=== PATIENT | female | born 1940 | race Caucasian/White ===

== ENCOUNTER → 2016-05-10 | Outpatient (CLI) | payer MEDICARE, BC, OTHER ==
[~2016-05-10] MED LIST: /WARF25TA OR; ACET65TA OR; ACTO150T PO; ALDA25TA2 PO; AUGM875T27 PO; B 12 PO; CALC1TAB21 PO; CALCIUM PO; CEPH500C PO; CORTISONE; ECOT81TA5 PO; FLAG500T PO; FLON0.054; FLUC150T PO; FURO1TAB15 PO; FURO20TA PO; LOSA25TA8 PO; LUMIGAN OU; MIRALAX PO; MULTIVIT OR; PERC5TAB8 OR; PRAV80TA PO; PRAVASTATIN PO; PRIL40CA PO; SPIR100T OR; SYNT112T OR; SYNT112T2 PO; VIT D PO; VITAMIN D PO; VITAMIN E PO; XALA0.002 OU; ZINCLOZ9 PO
[2016-05-10 18:16] LABS: FREE T4 1.19 NG/DL (0.76-1.46)
== END ==
LOC: M WUC 14:14
PROVIDERS: ATTEND Physician Assistant Medical
DX: E55.9 Vitamin D deficiency, unspecified (principal); E89.0 Postprocedural hypothyroidism

== ENCOUNTER → 2016-06-28 | Outpatient (REF) | payer MEDICARE, BC, OTHER | LOC: M SFHCPLAZ 11:53 | PROVIDERS: ATTEND Nurse Practitioner Family | DX: R30.0 Dysuria (principal) | CPT/HCPCS: 81002; 87088; 87186; G0463 ==

== ENCOUNTER → 2016-08-04 | Outpatient (REF) | payer MEDICARE, OTHER | LOC: M LABDRAW1 17:10 | PROVIDERS: ATTEND Internal Medicine Endocrinology, Diabetes & Metabolism | DX: M85.89 Other specified disorders of bone density and structure, multiple sites (principal); E55.9 Vitamin D deficiency, unspecified ==

== ENCOUNTER → 2016-09-01 | Outpatient (REF) | payer MEDICARE, OTHER ==
[2016-09-01 13:02] LABS: MEAN CORPUSCULAR HEMOGLOBIN 29.7 pg (27.0-33.0); MEAN CORPUSCULAR HGB CONC 32.4 g/dl (32.0-36.5); MEAN CORPUSCULAR VOLUME 91.8 fl (80.0-96.0); RED CELL DISTRIBUTION WIDTH 13.2 % (11.5-14.5)
[2016-09-01 13:03] LABS: ALBUMIN 3.6 GM/DL (3.2-5.2); ALKALINE PHOSPHATASE 70 U/L (45-117); ALT/SGPT 28 U/L (12-78); ANION GAP 9 MEQ/L (8-16); AST/SGOT 20 U/L (15-37); BILIRUBIN,TOTAL 0.2 MG/DL (0.2-1.0); BLOOD UREA NITROGEN 10 MG/DL (7-18); CALCIUM LEVEL 8.6 MG/DL (8.8-10.2); CARBON DIOXIDE LEVEL 25 MEQ/L (21-32); CHLORIDE LEVEL 108 MEQ/L (98-107); CHOLESTEROL LEVEL 165 MG/DL (<200); CREATININE FOR GFR 0.78 MG/DL (0.55-1.02); FREE T4 1.23 NG/DL (0.76-1.46); GLOMERULAR FILTRATION RATE > 60.0 (>39); GLUCOSE, FASTING 137 MG/DL (83-110); POTASSIUM SERUM 4.4 MEQ/L (3.5-5.1); SODIUM LEVEL 142 MEQ/L (136-145); TOTAL PROTEIN 6.6 GM/DL (6.4-8.2); TRIGLYCERIDES LEVEL 114 MG/DL (<150)
== END ==
LOC: M SFHCPLAZ 08:16
PROVIDERS: ATTEND Family Medicine
DX: I25.9 Chronic ischemic heart disease, unspecified (principal); E78.2 Mixed hyperlipidemia; E03.9 Hypothyroidism, unspecified; E13.9 Other specified diabetes mellitus without complications

== ENCOUNTER → 2016-10-10 | Outpatient (CLI) | payer MEDICARE, BC, OTHER ==
[~2016-10-10] MED LIST changes: -AUGM875T27 PO; +AUGM875T28 PO; -FURO1TAB15 PO; +FURO80TA2 PO; -XALA0.002 OU; +XALA0.007 OU
--- NOTE | 2016-10-10 19:06 | REP ---
CHEST, PA AND LATERAL: 10/10/2016. Clinical history: Left-sided chest wall pain. Comparison: 03/07/2016, 11/22/2012. Findings: Lung chester are well inflated. There is basilar fibrotic change medial basal segments both lower lobes with the greatest amount of fibrosis and diffuse interstitial changes throughout the upper mid and lower lung zones. No pleural effusion, lateral pleural thickening, parenchymal lung mass or pneumothorax. Minor apical pleural scarring again seen. The aorta is mildly tortuous but without aneurysm. Airway is intact. The heart size is borderline. No vascular redistribution or pulmonary edema. Lateral view shows no acute finding. There are marginal osteophytes throughout the thoracic spine with slightly exaggerated thoracic kyphosis upper spine but no acute compression deformity is seen, glenohumeral joints intact. Impression: 1. Some interstitial fibrosis present heaviest in the medial bases but without new or superimposed acute infiltrate, pleural effusion, pulmonary edema, atelectasis or mass. 2. Borderline heart size. 3. Tortuous aorta normal for age. There are degenerative changes in the spine. Signed by Juan Jose Diallo MD 10/11/2016 08:12 P
== END ==
LOC: M WUC 16:27
PROVIDERS: ATTEND Family Medicine
DX: R07.89 Other chest pain (principal); J98.4 Other disorders of lung
CPT/HCPCS: 71020; G0463

== ENCOUNTER → 2016-10-24 | Outpatient (CLI) | payer MEDICARE, BC ==
--- NOTE | 2016-10-24 13:46 | REPMRS ---
Patient History The patient states she has not had a clinical breast exam in over a year. Patient is postmenopausal and has history of other cancer at age 70. Family history of breast cancer in sister at age 50 or over. 3 benign excisional biopsies of the right breast. Digital Woman Screen Mammo: October 24, 2016 - Exam #: [id number] Bilateral CC and MLO view(s) were taken. Technologist: Elizabeth Peterson, Technologist Prior study comparison: September 10, 2015, digital woman screen mammo performed at [facility]. September 08, 2014, digital woman screen mammo performed at [facility]. FINDINGS: There are scattered fibroglandular densities. There is a fairly symmetric fibroglandular pattern in both breasts. There has been no interval development of masses, areas of architectural distortion or clusters of microcalcifications typical of malignancy. ASSESSMENT: BI-RADS/ACR category 2 mammogram. Benign finding(s). Recommendation Routine screening mammogram of both breasts in 1 year (for women over age 40). This mammogram was interpreted with the aid of an FDA-approved computer-aided dectection system. Electronically Signed By: Cal Clark MD 10/24/16 [id number]
== END ==
LOC: M WHC 12:57
PROVIDERS: ATTEND Family Medicine
DX: Z12.31 Encounter for screening mammogram for malignant neoplasm of breast (principal); Z85.9 Personal history of malignant neoplasm, unspecified; Z80.3 Family history of malignant neoplasm of breast

== ENCOUNTER → 2017-02-19 | Outpatient (CLI) | payer MEDICARE, BC, OTHER | LOC: M ADAMS 13:34 | PROVIDERS: ATTEND Physician Assistant | DX: N39.0 Urinary tract infection, site not specified (principal) ==

== ENCOUNTER → 2017-03-16 | Outpatient (REF) | payer MEDICARE, OTHER | LOC: M SFHCPLAZ 16:30 | DX: I11.9 Hypertensive heart disease without heart failure (principal); E11.9 Type 2 diabetes mellitus without complications; E78.2 Mixed hyperlipidemia ==

== ENCOUNTER → 2017-03-16 | Outpatient (REF) | payer MEDICARE, OTHER | LOC: M LABDRAW1 12:28 | DX: E89.0 Postprocedural hypothyroidism (principal); E55.9 Vitamin D deficiency, unspecified | CPT/HCPCS: 84443 ==

== ENCOUNTER → 2017-07-25 | Outpatient (REF) | payer MEDICARE, OTHER | LOC: M SFHCLERA 10:01 | DX: C44.712 Basal cell carcinoma of skin of right lower limb, including hip (principal); L73.8 Other specified follicular disorders | CPT/HCPCS: 88305 ==

== ENCOUNTER → 2017-07-30 | Outpatient (REF) | payer MEDICARE, OTHER | LOC: M SFHCPLAZ 11:48 | DX: R30.0 Dysuria (principal) | CPT/HCPCS: 87088; 87186 ==

== ENCOUNTER → 2017-09-27 | Outpatient (CLI) | payer MEDICARE, BC, OTHER ==
[2017-09-27 18:22] LABS: TOTAL 25(OH) VITAMIN D 48.5 NG/ML (30.0-100.0)
== END ==
LOC: M SMT 14:42
DX: E55.9 Vitamin D deficiency, unspecified (principal); E89.0 Postprocedural hypothyroidism; Z79.899 Other long term (current) drug therapy
CPT/HCPCS: 84443

== ENCOUNTER → 2017-10-17 | Outpatient (CLI) | payer MEDICARE, OTHER ==
[2017-10-17 19:33] LABS: BASO # 0.1 10^3/uL (0.0-0.2); BASO % 0.5 % (0.0-1.0); EOS # 0.2 10^3/uL (0.0-0.50); EOS % 1.8 % (0.0-3.0); HEMATOCRIT 34.9 % (36.0-47.0); HEMOGLOBIN 10.4 g/dl (12.0-15.5); LYMPH # 3.7 10^3/uL (1.5-4.5); LYMPH % 30.1 % (24.0-44.0); MEAN CORPUSCULAR HEMOGLOBIN 25.7 pg (27.0-33.0); MEAN CORPUSCULAR HGB CONC 29.8 g/dl (32.0-36.5); MEAN CORPUSCULAR VOLUME 86.4 fl (80.0-96.0); MONO # 1.2 10^3/uL (0.0-0.8); MONO % 9.9 % (0.0-5.0); NEUTROPHILS % 56.7 % (36.0-66.0); PLATELET COUNT, AUTOMATED 417 10^3/uL (150-450); RED BLOOD COUNT 4.04 10^6/uL (4.00-5.40); RED CELL DISTRIBUTION WIDTH 14.1 % (11.5-14.5); WHITE BLOOD COUNT 12.3 10^3/uL (4.0-10.0)
== END ==
LOC: M ADAMS 14:26
DX: J20.9 Acute bronchitis, unspecified (principal); J84.10 Pulmonary fibrosis, unspecified; I51.7 Cardiomegaly
CPT/HCPCS: 85025

== ENCOUNTER → 2017-11-12 | Outpatient (REF) | payer MEDICARE, OTHER ==
[2017-11-12 18:59] LABS: HEMATOCRIT 36.7 % (36.0-47.0); HEMOGLOBIN 11.2 g/dl (12.0-15.5); MEAN CORPUSCULAR HEMOGLOBIN 26.7 pg (27.0-33.0); MEAN CORPUSCULAR HGB CONC 30.5 g/dl (32.0-36.5); MEAN CORPUSCULAR VOLUME 87.4 fl (80.0-96.0); PLATELET COUNT, AUTOMATED 405 10^3/uL (150-450); RED CELL DISTRIBUTION WIDTH 15.3 % (11.5-14.5); WHITE BLOOD COUNT 12.6 10^3/uL (4.0-10.0)
[2017-11-12 19:28] LABS: ESTIMATED AVERAGE GLUCOSE 180 MG/DL (60-110); HEMOGLOBIN A1c 7.9 %
[2017-11-12 19:39] LABS: ALBUMIN 3.8 GM/DL (3.2-5.2); ALBUMIN/GLOBULIN RATIO 1.09 (1.00-1.93); ALKALINE PHOSPHATASE 97 U/L (45-117); ALT/SGPT 30 U/L (12-78); ANION GAP 9 MEQ/L (8-16); AST/SGOT 19 U/L (7-37); BILIRUBIN,TOTAL 0.4 MG/DL (0.2-1.0); BLOOD UREA NITROGEN 12 MG/DL (7-18); CALCIUM LEVEL 9.4 MG/DL (8.8-10.2); CARBON DIOXIDE LEVEL 27 MEQ/L (21-32); CHLORIDE LEVEL 102 MEQ/L (98-107); CREATININE FOR GFR 0.93 MG/DL (0.55-1.30); FREE T4 1.17 NG/DL (0.76-1.46); GLOMERULAR FILTRATION RATE > 60.0 (>39); GLUCOSE, FASTING 104 MG/DL (70-100); POTASSIUM SERUM 4.6 MEQ/L (3.5-5.1); SODIUM LEVEL 138 MEQ/L (136-145); TOTAL PROTEIN 7.3 GM/DL (6.4-8.2)
[2017-11-13 17:05] LABS: BASO # 0.1 10^3/uL (0.0-0.2); BASO % 0.5 % (0.0-1.0); EOS # 0.2 10^3/uL (0.0-0.50); EOS % 1.3 % (0.0-3.0); IMMATURE GRANULOCYTE # 0.1 10^3/uL (0-0); IMMATURE GRANULOCYTE % 0.7 % (0-3.0); LYMPH # 3.5 10^3/uL (1.5-4.5); LYMPH % 27.3 % (24.0-44.0); MONO # 1.4 10^3/uL (0.0-0.8); MONO % 10.9 % (0.0-5.0); NEUTROPHILS # 7.7 10^3/uL (1.8-7.7); NEUTROPHILS % 59.3 % (36.0-66.0)
== END ==
LOC: M SFHCPLAZ 15:49
DX: E11.9 Type 2 diabetes mellitus without complications (principal); E03.9 Hypothyroidism, unspecified; J40 Bronchitis, not specified as acute or chronic
CPT/HCPCS: 84443

== ENCOUNTER → 2017-12-26 | Outpatient (CLI) | payer MEDICARE, BC, OTHER ==
[2017-12-26 18:32] LABS: BASO # 0.1 10^3/uL (0.0-0.2); BASO % 0.5 % (0.0-1.0); EOS # 0.1 10^3/uL (0.0-0.50); EOS % 1.2 % (0.0-3.0); HEMOGLOBIN 10.6 g/dl (12.0-15.5); IMMATURE GRANULOCYTE % 0.7 % (0-3.0); LYMPH # 3.2 10^3/uL (1.5-4.5); LYMPH % 29.9 % (24.0-44.0); MEAN CORPUSCULAR HEMOGLOBIN 25.4 pg (27.0-33.0); MEAN CORPUSCULAR HGB CONC 29.4 g/dl (32.0-36.5); MEAN CORPUSCULAR VOLUME 86.3 fl (80.0-96.0); MONO % 9.5 % (0.0-5.0); NEUTROPHILS # 6.2 10^3/uL (1.8-7.7); NEUTROPHILS % 58.2 % (36.0-66.0); PLATELET COUNT, AUTOMATED 359 10^3/uL (150-450); RED BLOOD COUNT 4.17 10^6/uL (4.00-5.40); RED CELL DISTRIBUTION WIDTH 15.2 % (11.5-14.5); WHITE BLOOD COUNT 10.7 10^3/uL (4.0-10.0)
== END ==
LOC: M SMT 13:52
DX: D72.829 Elevated white blood cell count, unspecified (principal)
CPT/HCPCS: 85025

== ENCOUNTER → 2018-02-27 | Outpatient (REF) | payer MEDICARE, OTHER ==
[2018-02-27 18:35] LABS: BASO # 0.1 10^3/uL (0.0-0.2); BASO % 0.6 % (0.0-1.0); EOS # 0.1 10^3/uL (0.0-0.50); EOS % 1.4 % (0.0-3.0); HEMATOCRIT 35.2 % (36.0-47.0); HEMOGLOBIN 10.5 g/dl (12.0-15.5); IMMATURE GRANULOCYTE % 0.5 % (0-3.0); LYMPH # 3.1 10^3/uL (1.5-4.5); LYMPH % 30.5 % (24.0-44.0); MEAN CORPUSCULAR HEMOGLOBIN 25.1 pg (27.0-33.0); MEAN CORPUSCULAR HGB CONC 29.8 g/dl (32.0-36.5); MEAN CORPUSCULAR VOLUME 84.2 fl (80.0-96.0); MONO % 9.7 % (0.0-5.0); NEUTROPHILS # 5.8 10^3/uL (1.8-7.7); NEUTROPHILS % 57.3 % (36.0-66.0); PLATELET COUNT, AUTOMATED 384 10^3/uL (150-450); RED BLOOD COUNT 4.18 10^6/uL (4.00-5.40); RED CELL DISTRIBUTION WIDTH 15.1 % (11.5-14.5); WHITE BLOOD COUNT 10.1 10^3/uL (4.0-10.0)
[2018-02-27 18:59] LABS: ALBUMIN 3.8 GM/DL (3.2-5.2); ALBUMIN/GLOBULIN RATIO 1.09 (1.00-1.93); ALKALINE PHOSPHATASE 104 U/L (45-117); ALT/SGPT 24 U/L (12-78); ANION GAP 8 MEQ/L (8-16); AST/SGOT 14 U/L (7-37); BILIRUBIN,TOTAL 0.3 MG/DL (0.2-1.0); BLOOD UREA NITROGEN 11 MG/DL (7-18); CALCIUM LEVEL 8.8 MG/DL (8.8-10.2); CARBON DIOXIDE LEVEL 29 MEQ/L (21-32); CHLORIDE LEVEL 101 MEQ/L (98-107); CREATININE FOR GFR 0.88 MG/DL (0.55-1.30); GLOMERULAR FILTRATION RATE > 60.0 (>39); GLUCOSE, FASTING 158 MG/DL (70-100); POTASSIUM SERUM 4.1 MEQ/L (3.5-5.1); SODIUM LEVEL 138 MEQ/L (136-145); TOTAL PROTEIN 7.3 GM/DL (6.4-8.2)
[2018-02-27 19:04] LABS: ESTIMATED AVERAGE GLUCOSE 209 MG/DL (60-110); HEMOGLOBIN A1c 8.9 %
== END ==
LOC: M SFHCPLAZ 15:09
DX: E11.9 Type 2 diabetes mellitus without complications (principal); I11.0 Hypertensive heart disease with heart failure; E78.2 Mixed hyperlipidemia; D72.829 Elevated white blood cell count, unspecified
CPT/HCPCS: 80053

== ENCOUNTER → 2018-04-10 | Outpatient (REF) | payer MEDICARE, OTHER ==
[~2018-04-10] MED LIST changes: +LOSA25TA14 PO; -LOSA25TA8 PO
[2018-04-10 17:57] LABS: HEMATOCRIT 36.1 % (36.0-47.0); HEMOGLOBIN 10.4 g/dl (12.0-15.5); MEAN CORPUSCULAR HEMOGLOBIN 24.2 pg (27.0-33.0); MEAN CORPUSCULAR HGB CONC 28.8 g/dl (32.0-36.5); MEAN CORPUSCULAR VOLUME 84.1 fl (80.0-96.0); PLATELET COUNT, AUTOMATED 445 10^3/uL (150-450); RED BLOOD COUNT 4.29 10^6/uL (4.00-5.40); WHITE BLOOD COUNT 13.5 10^3/uL (4.0-10.0)
[2018-04-10 18:19] LABS: BLOOD UREA NITROGEN 18 MG/DL (7-18); CREATININE FOR GFR 0.86 MG/DL (0.55-1.30); GLUCOSE, FASTING 106 MG/DL (70-100)
[2018-04-10 18:20] LABS: CALCIUM LEVEL 9.7 MG/DL (8.8-10.2); CARBON DIOXIDE LEVEL 27 MEQ/L (21-32); CHLORIDE LEVEL 101 MEQ/L (98-107); FERRITIN 11 NG/ML (8-252); GLOMERULAR FILTRATION RATE > 60.0 (>39); IRON (FE) 26 UG/DL (50-170); PERCENT SATURATION 5.7 % (13.2-45.0); POTASSIUM SERUM 4.3 MEQ/L (3.5-5.1); SODIUM LEVEL 137 MEQ/L (136-145); TOTAL IRON BINDING CAPACITY 460 UG/DL (250-450)
[2018-04-11 09:29] LABS: FOLATE > 24.0 NG/ML (>5.4)
[2018-04-11 10:51] LABS: BASO # 0.1 10^3/uL (0.0-0.2); BASO % 0.7 % (0.0-1.0); EOS # 0.1 10^3/uL (0.0-0.50); EOS % 0.9 % (0.0-3.0); LYMPH # 3.3 10^3/uL (1.5-4.5); LYMPH % 23.8 % (24.0-44.0); MONO # 1.4 10^3/uL (0.0-0.8); MONO % 10.3 % (0.0-5.0); NEUTROPHILS # 8.8 10^3/uL (1.8-7.7); NEUTROPHILS % 63.8 % (36.0-66.0)
[2018-04-11 11:26] LABS: PLATELET ESTIMATE NORMAL (NORMAL)
== END ==
LOC: M SFHCPLAZ 15:28
PROVIDERS: ATTEND Nurse Practitioner Family
DX: D64.9 Anemia, unspecified (principal); E11.9 Type 2 diabetes mellitus without complications

== ENCOUNTER → 2018-04-10 | Outpatient (REF) | payer MEDICARE, OTHER ==
[2018-04-10 18:25] LABS: THYROID STIMULATING HORMONE 2.34 uIU/ML (0.358-3.740)
[2018-04-10 18:27] LABS: TOTAL 25(OH) VITAMIN D 69.7 NG/ML (30.0-100.0)
== END ==
LOC: M LABDRAWP 15:53
PROVIDERS: ATTEND Internal Medicine Endocrinology, Diabetes & Metabolism
DX: E55.9 Vitamin D deficiency, unspecified (principal); E11.9 Type 2 diabetes mellitus without complications; E03.9 Hypothyroidism, unspecified; R53.83 Other fatigue
CPT/HCPCS: 36415; 80048; 82306; 82607; 82728; 82746; 83550; 84443; 85027; 85046; G0463

== ENCOUNTER → 2018-04-11 | Outpatient (REF) | payer MEDICARE, OTHER ==
[~2018-04-11] MED LIST changes: +ALDA50TA2 PO; +COMB0.2S OU; +EFFE37.5 PO; +FERR1TAB8 PO; +FLON1SPR NARES; +LIPI20TA PO; +METF500T13 PO; +RANI300C PO
== END ==
LOC: M SFHCPLAZ 17:11
PROVIDERS: ATTEND Nurse Practitioner Family
DX: D72.829 Elevated white blood cell count, unspecified (principal)

== ENCOUNTER 2018-05-16 11:50 | Day surgery (SDC) | payer MEDICARE, BC, OTHER ==
[~2018-05-16] VITALS: Ht 152.4 cm; Wt 67.9 kg
[~2018-05-16 11:50] MED LIST changes: +NS 1,000 ML IV ONE
[2018-05-16] MEDS ORDERED: PROPOFOL 200 MG/20 ML VIAL As Ordered ONE (12:35)
--- NOTE | 2018-05-16 13:16 | ROOR ---
Patient Name: Jackeline Ramos Procedure Date: 05/16/2018 12:49 PM Date of : 1940 Age: 78 Room: [facility] Gender: Female Note Status: Finalized Procedure: Colonoscopy Indications: Iron deficiency anemia, Abnormal CT of the GI tract Providers: James Gomez Jr, MD Referring MD: Mahi Pritchett NP Requesting Provider: Medicines: Propofol per Anesthesia Complications: No immediate complications. Procedure: Pre-Anesthesia Assessment: - Prior to the procedure, a History and Physical was performed, and patient medications and allergies were reviewed. The patient is competent. The risks and benefits of the procedure and the sedation options and risks were discussed with the patient. All questions were answered and informed consent was obtained. Patient identification and proposed procedure were verified by the physician and the nurse in the pre-procedure area and in the procedure room. Mental Status Examination: alert and oriented. Airway Examination: normal oropharyngeal airway and neck mobility. Respiratory Examination: clear to auscultation. CV Examination: normal. ASA Grade Assessment: II - A patient with mild systemic disease. After reviewing the risks and benefits, the patient was deemed in satisfactory condition to undergo the procedure. The anesthesia plan was to use moderate sedation / analgesia (conscious sedation). Immediately prior to administration of medications, the patient was re-assessed for adequacy to receive sedatives. The heart rate, respiratory rate, oxygen saturations, blood pressure, adequacy of pulmonary ventilation, and response to care were monitored throughout the procedure. The physical status of the patient was re-assessed after the procedure. The Colonoscope was introduced through the anus and advanced to the cecum, identified by the appendiceal orifice. The colonoscopy was performed without difficulty. The patient tolerated the procedure well. The quality of the bowel preparation was adequate. Findings: The rectum, recto-sigmoid colon, descending colon, transverse colon, hepatic flexure and anastomosis appeared normal. A frond-like/villous, polypoid and sessile partially obstructing large mass was found in the cecum. The mass was partially circumferential (involving one-half of the lumen circumference). Oozing was present. This was biopsied with a hot snare for histology. Impression: - The rectum, recto-sigmoid colon, descending colon, transverse colon, hepatic flexure and colonic anastomosis are normal. - Rule out malignancy, partially obstructing tumor in the cecum. Biopsied. Recommendation: - Discharge patient to home (ambulatory). - Return to my office in 1 week. James Gomez MD James Gomez Jr, MD 05/16/2018 1:16:00 PM This report has been signed electronically. Number of Addenda: 0 Note Initiated On: 05/16/2018 12:49 PM Estimated Blood Loss: Estimated blood loss: none.
[2018-05-16 14:15] VITALS: BP 136/68
== END 2018-05-16 14:14 | disposition home or self-care (01) ==
LOC: M OPP 11:50
PROVIDERS: ATTEND Surgery
DX: D50.9 Iron deficiency anemia, unspecified (principal); D49.0 Neoplasm of unspecified behavior of digestive system; K56.690 Other partial intestinal obstruction; R93.3 Abnormal findings on diagnostic imaging of other parts of digestive tract

== ENCOUNTER 2018-06-27 09:16 | Inpatient (IN) | payer MEDICARE, BC, OTHER ==
--- NOTE | 2018-06-26 14:58 | HPE ---
DATE OF ANTICIPATED ADMISSION: 06/27/2018 Patient is 78-year-old female who underwent sigmoid resection for diverticulitis in the past and over the last couple years she has had some gastrointestinal (GI) complaints, has not followed up with a colonoscopy and, unfortunately, ended up with CAT scan which showed some thickening in the right colon and concerning for a possible malignancy, underwent colonoscopy on 05/16/2018, and revealed a villous adenoma with possible focal high-grade dysplasia. No definitive cancer was appreciated. On her followup visit, we discussed this, the polyp was very large polyp and essentially revealed some high-grade dysplasia, and we talked about the possibility of an invasive cancer might be present despite having no evidence on the biopsy itself. Since that time, she states that she has been doing well with bowel movements. No fevers, no chills. No nausea, no vomiting. No diarrhea issues. Her past medical history is significant for history of hypertension, hypercholesterolemia, diabetes mellitus, skin cancer, hip replacement, hysterectomy, thyroid surgery, rotator cuff surgery, cataract surgery, adhesiolysis, low anterior/sigmoid resection, cystoscopy, colonoscopy, breast biopsy, MEDICATIONS: Include; - Lipitor - Synthroid - losartan - Lasix - Aldactone - Zantac - aspirin - calcium - Fluonex - azelastine nasal - meclizine - nitroglycerin as needed - Xalatan - Alphagan eye drops - Effexor ALLERGIES: ALENDRONATE, CIPROFLOXACIN, Codeine, MEPERIDINE, MORPHINE, PENTAZOCINE, PROMETHAZINE, PROPOXYPHENE, DARVON, ALTACE, ZEBETA, TALWIN, PHENERGAN, SULFA and DEMEROL. PHYSICAL EXAM: Reveals a 78-year-old female who looks stated age. HEENT: Reveals an atraumatic, normocephalic head with extraocular movements intact. Pupils are equal and reactive to light. Sclerae are nonicteric. Oropharynx clear without exudate or lesion. Neck: Supple without adenopathy. Lungs are clear to auscultation without crackles, wheezes, or rhonchi. Heart is regular without murmur. Abdomen is soft, nontender, nondistended. No guarding, no rebound. No peritoneal signs are appreciated. Previous incision has healed well along the midline. IMPRESSION/PLAN: Patient is a 78-year-old female with abnormal right colon/cecum with a high-grade dysplasia of the right colon. This polyp may have an additional malignancy within it, and my recommendation is to proceed with a laparoscopic right colectomy. Risks as well as benefits have been discussed with the patient at length, those including but not limited to, infection, bleeding, damage to surrounding structures. Patient also understands that given her previous surgery, she has a higher risk for need for open operative intervention. She also understands that she has a higher risk for postoperative diarrhea given the two colonic resections in the past. The patient understands risks include, but are not limited to, infection, bleeding, damage to surrounding structures including bowel, bladder, nerve vessels, kidney, ureter, duodenum, pancreas, and possible need for open operative intervention. She will be receiving a mechanical as well as antibiotic bowel prep, Fonseca, thromboembolism deterrents (TEDs), and sequentials, and will need hospitalization for 3-5 days depending on her postoperative course.
[~2018-06-27] VITALS: Ht 152.4 cm; Wt 75.2 kg
[2018-06-27] MEDS: LOSARTAN 25 MG TAB PO SCH (09:00)
[~2018-06-27 09:16] MED LIST changes: -/WARF25TA OR; +COUM1TAB18 OR; -NS 1,000 ML IV ONE
[2018-06-27] MEDS ORDERED: ERTAPENEM SODIUM 1 GM in NS 50 ML IV ONE (09:45)
[2018-06-27] MEDS ORDERED: LR 1,000 ML IV ONE (09:45)
[2018-06-27] MEDS ORDERED: GLUCAGON FOR INJ 1 MG VIAL (J1610) As Ordered ONE (10:28)
[2018-06-27] MEDS ORDERED: BUPIVACAINE/EPIN 0.25% 30 ML VIAL As Ordered ONE (10:28)
[2018-06-27] MEDS ORDERED: CALC600T57 PO (10:34)
[2018-06-27] MEDS ORDERED: ROCURONIUM BROMIDE 50 MG/5 ML VIAL As Ordered ONE ×2 (10:45→12:38)
[2018-06-27] MEDS ORDERED: ONDANSETRON 4MG/2ML VIAL (J2405) As Ordered ONE (10:45)
[2018-06-27] MEDS ORDERED: dexameTHASONE 4 MG/ML 1ML VIAL (J1100) As Ordered ONE (10:45)
[2018-06-27] MEDS ORDERED: PROPOFOL 200 MG/20 ML VIAL As Ordered ONE (10:45)
[2018-06-27] MEDS ORDERED: LIDOCAINE 2% INJ 100 MG/5 ML SDV (FOR ANES.) As Ordered ONE (10:45)
[2018-06-27] MEDS ORDERED: fentaNYL 250 MCG/5 ML INJECTION (J3010) As Ordered ONE (10:46)
[2018-06-27] MEDS ORDERED: MIDAZOLAM INJ 2 MG/2 ML VIAL (J2250) As Ordered ONE (10:46)
[2018-06-27] MEDS ORDERED: SCOPOLAMINE 1MG TRANSDERMAL PATCH As Ordered ONE (11:02)
[2018-06-27] MEDS ORDERED: SCOPOLAMINE 1MG TRANSDERMAL PATCH TOP ONE (11:15)
[2018-06-27] MEDS ORDERED: HYDROmorphone HCL 2 MG/ML 1ML VIAL (J1170) As Ordered ONE (12:05)
[2018-06-27] MEDS ORDERED: BUPIVACAINE HCL 0.25% 10 ML VIAL As Ordered ONE (13:16)
[2018-06-27] MEDS ORDERED: BUPIVACAINE LIPOSOME/PF 1.3% 20ML VIAL (13.3MG/ML)(EXPAREL)(C9290 PER1MG) As Ordered ONE (13:16)
[2018-06-27] MEDS ORDERED: GLYCOPYRROLATE INJ 0.2 MG/ML 2 ML VIAL As Ordered ONE (13:21)
[2018-06-27] MEDS ORDERED: NEOSTIGMINE 10 MG/10 ML VIAL (J2710) As Ordered ONE (13:21)
[2018-06-27] MEDS ORDERED: IPRATROPIUM 0.5MG/ALBUTEROL 2.5MG INH SOL UD 3ML (DUONEB)(J7620) NEB PRN (14:15)
[2018-06-27] MEDS ORDERED: HYDROMORPHONE HCL 0.5 MG/ 0.5 ML SYRINGE (J1170 PER 1) IV PRN ×2 (14:15)
[2018-06-27] MEDS ORDERED: FLUTICASONE PROP 0.05% NASAL SPRAY 16 GM (FLONASE) NARES PRN (14:15)
[2018-06-27] MEDS ORDERED: ONDANSETRON 4MG/2ML VIAL (J2405) IV PRN ×2 (14:15→14:45)
[2018-06-27] MEDS: D5W/LR 1,000 ML IV SCH ×2 (14:30→23:18)
[2018-06-27] MEDS ORDERED: fentaNYL 100 MCG/2 ML INJECTION (J3010) IV PRN (14:45)
[2018-06-27] MEDS ORDERED: METOCLOPRAMIDE INJ 10MG/2ML VIAL (J2765) IV PRN (14:45)
[2018-06-27 16:56] VITALS: O2SAT 96
[2018-06-27 19:30] VITALS: BP 129/67
[2018-06-27] MEDS: KETOROLAC 30 MG/ML VIAL (J1885) IV PRN (19:41)
[2018-06-27] MEDS: IPRATROPIUM 0.5MG/ALBUTEROL 2.5MG INH SOL UD 3ML (DUONEB)(J7620) NEB SCH (20:28)
[2018-06-27 20:30] VITALS: BP 125/63
[2018-06-27] MEDS: LATANOPROST 0.005% OPHTH SOLN 2.5 ML OU SCH (21:50)
[2018-06-27] MEDS: ALVIMOPAN 12 MG CAPSULE (ENTEREG) PO SCH (21:51)
[2018-06-27 22:00] VITALS: BP 125/63
[2018-06-28] VITALS (9 sets, daily range): BP systolic 119–132; BP diastolic 57–68; O2SAT 93–99
[2018-06-28] MEDS: IPRATROPIUM 0.5MG/ALBUTEROL 2.5MG INH SOL UD 3ML (DUONEB)(J7620) NEB SCH ×4 (01:11→19:52)
[2018-06-28] MEDS: KETOROLAC 30 MG/ML VIAL (J1885) IV PRN ×3 (02:39→19:00)
[2018-06-28 06:25] LABS: HEMATOCRIT 29.7 % (36.0-47.0); HEMOGLOBIN 8.4 g/dl (12.0-15.5); MEAN CORPUSCULAR HEMOGLOBIN 23.9 pg (27.0-33.0); MEAN CORPUSCULAR HGB CONC 28.3 g/dl (32.0-36.5); MEAN CORPUSCULAR VOLUME 84.4 fl (80.0-96.0); PLATELET COUNT, AUTOMATED 381 10^3/uL (150-450); RED BLOOD COUNT 3.52 10^6/uL (4.00-5.40); WHITE BLOOD COUNT 12.1 10^3/uL (4.0-10.0)
[2018-06-28 06:49] LABS: BLOOD UREA NITROGEN 7 MG/DL (7-18); CALCIUM LEVEL 8.3 MG/DL (8.8-10.2); CARBON DIOXIDE LEVEL 27 MEQ/L (21-32); CHLORIDE LEVEL 109 MEQ/L (98-107); CREATININE FOR GFR 0.73 MG/DL (0.55-1.30); GLOMERULAR FILTRATION RATE > 60.0 (>39); GLUCOSE, FASTING 175 MG/DL (70-100); POTASSIUM SERUM 3.9 MEQ/L (3.5-5.1); SODIUM LEVEL 142 MEQ/L (136-145)
[2018-06-28] MEDS: D5W/LR 1,000 ML IV SCH ×2 (07:38→22:27)
[2018-06-28] MEDS: VENLAFAXINE **XR** 37.5 MG CAPSULE PO SCH (08:31)
[2018-06-28] MEDS: ALVIMOPAN 12 MG CAPSULE (ENTEREG) PO SCH ×2 (08:31→20:10)
[2018-06-28] MEDS: PANTOPRAZOLE 40MG INJ (PROTONIX) (C9113) IV SCH (08:31)
[2018-06-28] MEDS: LOSARTAN 25 MG TAB PO SCH (08:32)
[2018-06-28] MEDS: ATORVASTATIN 20 MG TAB PO SCH (08:32)
[2018-06-28] MEDS ORDERED: ERTAPENEM SODIUM 1 GM in NS MINI-BAG PLUS 50 ML IV ONE (12:00)
--- NOTE | 2018-06-28 12:19 | RO ---
DATE OF PROCEDURE: 06/27/2018 PREOPERATIVE DIAGNOSIS: Dysplastic cecal polyp. 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 PROCEDURE: SURGEON: James Gomez MD SPEECH AND LANGUAGE SPECIALIST: Dr. Wiley (Dr. Wiley provided retraction, exposure, assistance with anastomosis, and abdominal wall closure. ANESTHESIA: General endotracheal anesthesia. ESTIMATED BLOOD LOSS (EBL): Minimal. FLUIDS: Crystalloid. BRIEF PROCEDURE SUMMARY: The patient was brought to the operating room and was given general anesthesia. After adequate anesthesia and preoperative antibiotics were given, the patient was prepped and draped in the usual sterile fashion. Next, a epigastric 5 mm incision was made for a 5 mm trocar. Veress needle placed into the abdominal cavity insufflated to 15 mm of pressure and a dilating 5 mm trocar was placed under direct visualization into the peritoneal cavity. Numerous adhesions along the midline as well as left subcostal left lower quadrant as well as suprapubic area were seen. There was a great deal of adhesions but even bowel were tightly adherent to the abdominal wall. In any case, a second trocar was placed and using the Harmonic scalpel I was able take down the omentum that was adherent to the midline at the umbilicus and inferior to this. Then what was noticed was some significant small bowel that was adherent to the abdominal wall in this area all way down to the pelvis. I was able take this down sharply, taking care to make sure that we stayed on the abdominal wall and some areas I did remove part of the fascia in this area to stay on the fascia instead of close to the wall. In any case, once this was performed and good hemostasis was achieved for the anterior abdominal wall, the pelvic adhesions were left in place at this time but later on in the operation further adhesiolysis needed to be performed. This patient had a previous low anterior resection for diverticulitis and multiple episodes of diverticulitis in the past, and I anticipate this is why she had such significant adhesions. After a prolonged period of time of adhesiolysis, then the right colon was able to be identified and then mobilized along the white line of Toldt using the Harmonic scalpel. This was mobilized medially and kocherized off the duodenum in this area where I was able to see the pancreas nicely and the sweep of the duodenum and the C loop of the duodenum using the Harmonic scalpel. Also, the cecum was nicely mobilized as well as the ascending colon, the hepatic flexure up to the mid transverse colon where the falciform ligament was seen. During this dissection, we had two 5 mm lower abdominal trocars, a 10/11 at the umbilicus, and an epigastric 5 mm trocar. The patient had a significant amount adhesions of the terminal ileum however to the right pelvic sidewall, and eventually I was able to mobilize this area off the pelvic sidewall, but then further adhesions were in the pelvis and there was some matted small bowel down into this pelvis that I needed to mobilize adequately to bring the small bowel up to the midline. At this time, once the small bowel was mobilized adequately, the right colon had been mobilized adequately, a small incision in the periumbilical area was made with skin knife. Electrocautery was used cut through dermis, underlying subcutaneous tissue, down through the fascia, into the abdomen and a [id number] anastomosis was created of the small bowel to the hepatic flexure area. This came together well. The enterotomy site was resected using a LEEANN 75 load. However, there was a small amount of small bowel left over that was transected using an Tea green load at this site. This went across a little bit of the small bowel mesentery and hemoclips were placed on this as well. The mesentery of the bowel had been previously taken first with Harmonic scalpel on the small vessels and then on the ileocolic vessel this was taken with an Tea 60 vascular load. The bowel previously, both the ascending colon/right colon and the small bowel was transected using LEEANN 75 staplers. Once this anastomosis was created, there was one area where I had concerns there doing the dissection that there may have been a small serosal tear. This was brought up into the wound and evaluated and revealed no evidence of serosal tear, but at that time, I saw multiple adhesions that I was able to take down through this incision as well of the omentum adherent to the small bowel. Once this was performed, the abdomen was copiously irrigated until clear. Then, #1 Vicryl was used to approximate the fascia and roger were used to approximate the skin. Dry sterile dressing was applied. The patient was awakened, extubated, brought to the recovery room awake, alert and hemodynamically stable. Sponge and needle counts correct times two.
--- NOTE | 2018-06-28 12:22 | IPN ---
DATE: 06/27/2018 The patient is postoperative day #1 from her laparoscopic right colectomy and overall seems to be doing quite well from a pain standpoint. She has been up out of bed to a chair and has been walking in the hallway. She did get some Exparel from a local standpoint and has been doing well with some Toradol injections but really has not needed anything more significant than that. She has been afebrile and her urine output has been very good. Her white count is slightly elevated at this time and she is anemic as she was previously. I hope that with further diuresis that she will hemoconcentrate little bit more. However, if her hematocrit drops down further and she becomes symptomatic, we may consider transfusion. Otherwise, from abdominal standpoint, her incisions were clean, dry without any erythema, drainage or discharge. She has some minimal distension, but without significant tenderness or pain. Extremities are warm, and well-perfused. IMPRESSION AND PLAN: 1. The patient is status post right colectomy and seems to be doing well at this point. Pain control issues are well under control. 2. Fonseca catheters in place and will plan on taking this out tomorrow if she is as ambulatory as she is today. She has her prerequisite 24-hour antibiotic to be given at noon. We will have to watch her white count and make sure that comes down as well over the next couple days. We will keep her nothing by mouth at this time but continued to encourage her to increase activity. Pathology is not back at this time.
[2018-06-28] MEDS: LATANOPROST 0.005% OPHTH SOLN 2.5 ML OU SCH (20:10)
[2018-06-29] MEDS: KETOROLAC 30 MG/ML VIAL (J1885) IV PRN (01:31)
[2018-06-29 02:00] VITALS: BP 134/68
[2018-06-29] MEDS: IPRATROPIUM 0.5MG/ALBUTEROL 2.5MG INH SOL UD 3ML (DUONEB)(J7620) NEB SCH ×4 (02:00→20:00)
[2018-06-29] MEDS ORDERED: SIMETHICONE 80 MG CHEW TAB PO PRN (04:00)
[2018-06-29] MEDS: ACETAMINOPHEN TAB 650MG DOSE (2X325MG) PO PRN ×3 (04:14→21:49)
[2018-06-29 06:00] VITALS: BP 125/62
[2018-06-29 06:26] LABS: HEMATOCRIT 28.3 % (36.0-47.0); HEMOGLOBIN 7.9 g/dl (12.0-15.5); MEAN CORPUSCULAR HEMOGLOBIN 23.6 pg (27.0-33.0); MEAN CORPUSCULAR HGB CONC 27.9 g/dl (32.0-36.5); MEAN CORPUSCULAR VOLUME 84.5 fl (80.0-96.0); PLATELET COUNT, AUTOMATED 378 10^3/uL (150-450); RED BLOOD COUNT 3.35 10^6/uL (4.00-5.40); WHITE BLOOD COUNT 12.4 10^3/uL (4.0-10.0)
[2018-06-29 06:39] LABS: BLOOD UREA NITROGEN 8 MG/DL (7-18); CALCIUM LEVEL 8.3 MG/DL (8.8-10.2); CARBON DIOXIDE LEVEL 25 MEQ/L (21-32); CHLORIDE LEVEL 109 MEQ/L (98-107); CREATININE FOR GFR 0.77 MG/DL (0.55-1.30); GLOMERULAR FILTRATION RATE > 60.0 (>39); GLUCOSE, FASTING 158 MG/DL (70-100); POTASSIUM SERUM 3.7 MEQ/L (3.5-5.1); SODIUM LEVEL 142 MEQ/L (136-145)
--- NOTE | 2018-06-29 07:59 | IPN ---
DATE: 06/29/2018 The patient is status post right colectomy for a dysplastic right colon polyp overall has been doing better. She had some flatus and a very small bowel movement. She has not had any fevers or chills today although did have a temperature that was up to 100.3 last yesterday afternoon. Overnight it has been afebrile and did have some crampy abdominal pain last night which resolved with some Tylenol and some simethicone. Otherwise seemed to be getting up moving around well. She would like her catheter out this morning and is thirsty / hungry. Otherwise her abdomen is softly distended, nontender. No guarding no rebound. No peritoneal signs are appreciated. Incisions are dry. IMPRESSION AND PLAN: The patient is status post right colectomy. Seems to be doing relatively well at this point. Her urine outputs been a great will Hep-Lock her IV. We will increase her activities. She did not have a little bit of desaturation on her this morning when she was active, moving around. She has had some anemia and this may be contributing to it and also the is probably secondary to some atelectasis as well. However, if her white count stays up tomorrow will order a chest x-ray to rule out any other significant etiology for this.
[2018-06-29] MEDS: PANTOPRAZOLE 40MG INJ (PROTONIX) (C9113) IV SCH (08:47)
[2018-06-29] MEDS: ATORVASTATIN 20 MG TAB PO SCH (08:50)
[2018-06-29] MEDS: VENLAFAXINE **XR** 37.5 MG CAPSULE PO SCH (08:50)
[2018-06-29] MEDS: ALVIMOPAN 12 MG CAPSULE (ENTEREG) PO SCH ×2 (08:50→21:48)
[2018-06-29] MEDS: LOSARTAN 25 MG TAB PO SCH (09:01)
[2018-06-29 10:00] VITALS: BP 114/55
[2018-06-29 14:00] VITALS: BP 115/57
[2018-06-29] MEDS ORDERED: GLUCAGON FOR INJ 1 MG VIAL (J1610) SC PRN (16:30)
[2018-06-29] MEDS ORDERED: GLUCOSE 4 GM CHEW TABLET PO PRN (16:30)
[2018-06-29] MEDS ORDERED: DEXTROSE 50% 50 ML SYRINGE IV PRN (16:30)
--- NOTE | 2018-06-29 16:31 | REP ---
Chest x-ray: Two views. History: Delirium. Cough. Comparison chest x-ray: October 17, 2017. Findings: There is blunting of the posterior pleural angles and the right lateral pleural angle indicating small amount of pleural fluid bilaterally. Mild cardiomegaly is observed. Pulmonary vasculature is cephalized. No focal infiltrate is seen. There are degenerative changes in the thoracic spine. The aorta somewhat tortuous. Impression: Cardiomegaly and small bilateral effusions. Vascular congestion. Mild CHF pattern. Electronically Signed by Aman Mims MD 06/29/2018 04:22 P
[2018-06-29] MEDS: HumaLOG INSULIN (NovoLOG) PER UNIT SC SCH (17:30)
[2018-06-29 17:40] LABS: BASO % 0.2 % (0.0-1.0); EOS % 0.3 % (0.0-3.0); HEMATOCRIT 26.4 % (36.0-47.0); HEMOGLOBIN 7.5 g/dl (12.0-15.5); LYMPH # 2.1 10^3/uL (1.5-4.5); LYMPH % 19.7 % (24.0-44.0); MEAN CORPUSCULAR HEMOGLOBIN 23.7 pg (27.0-33.0); MEAN CORPUSCULAR HGB CONC 28.4 g/dl (32.0-36.5); MEAN CORPUSCULAR VOLUME 83.3 fl (80.0-96.0); MONO # 1.2 10^3/uL (0.0-0.8); MONO % 11.2 % (0.0-5.0); NEUTROPHILS # 7.4 10^3/uL (1.8-7.7); NEUTROPHILS % 68.2 % (36.0-66.0); PLATELET COUNT, AUTOMATED 366 10^3/uL (150-450); RED BLOOD COUNT 3.17 10^6/uL (4.00-5.40); WHITE BLOOD COUNT 10.8 10^3/uL (4.0-10.0)
[2018-06-29 17:44] LABS: ALBUMIN 2.9 GM/DL (3.2-5.2); ALT/SGPT 18 U/L (12-78); BILIRUBIN,TOTAL 0.7 MG/DL (0.2-1.0); BLOOD UREA NITROGEN 8 MG/DL (7-18); CALCIUM LEVEL 8.4 MG/DL (8.8-10.2); CARBON DIOXIDE LEVEL 26 MEQ/L (21-32); CHLORIDE LEVEL 107 MEQ/L (98-107); CREATININE FOR GFR 0.81 MG/DL (0.55-1.30); GLOMERULAR FILTRATION RATE > 60.0 (>39); GLUCOSE, FASTING 116 MG/DL (70-100); POTASSIUM SERUM 3.7 MEQ/L (3.5-5.1); SODIUM LEVEL 141 MEQ/L (136-145); TOTAL PROTEIN 6.1 GM/DL (6.4-8.2)
[2018-06-29 19:03] LABS: APPEARANCE, URINE CLEAR (CLEAR); BACTERIA, URINE AUTO NEGATIVE (NEGATIVE); BILIRUBIN, URINE AUTO NEGATIVE (NEGATIVE); BLOOD, URINE BLOOD 2+ (NEGATIVE); COLOR, URINE STRAW (YELLOW); GLUCOSE, URINE (UA) AUTO NEGATIVE (NEGATIVE); KETONE, URINE AUTO NEGATIVE (NEGATIVE); LEUKOCYTE ESTERASE, URINE AUTO TRACE (NEGATIVE); NITRITE, URINE AUTO NEGATIVE (NEGATIVE); PROTEIN, URINE AUTO NEGATIVE (NEGATIVE); RBC, URINE AUTO 7 /HPF (0-3); SPECIFIC GRAVITY URINE AUTO 1.002 (1.002-1.035); SQUAMOUS EPITHELIAL CELL UR AU 0 /HPF (0-6); UROBILINOGEN, URINE AUTO 0.2 mg/dL (0.0-2.0); WBC, URINE AUTO 1 /HPF (0-3)
[2018-06-29] MEDS ORDERED: HumaLOG INSULIN (NovoLOG) PER UNIT SC SCH (21:00)
[2018-06-29] MEDS: LATANOPROST 0.005% OPHTH SOLN 2.5 ML OU SCH (21:48)
[2018-06-29 22:00] VITALS: BP 125/59
--- NOTE | 2018-06-29 22:13 | CR ---
DATE OF CONSULTATION: 06/29/2018 CONSULTATION FOR: Dr. Gomez Consultation was requested for postoperative confusion. Patient underwent a resection of a colon polyp. Review of the surgical report indicates there were a lot of adhesions, and it was a fairly complicated, prolonged procedure. She had an uncomplicated postoperative course until today, when she seemed to be confused. She was seeing birds in the room, and so consultation was placed for evaluation. PAST MEDICAL HISTORY: 1. Type 2 diabetes. 2. History of irritable bowel syndrome (IBS). 3. Mild coronary artery disease with past stress test March 2018. It was normal with normal perfusion, ejection fraction of 69%. Insignificant coronary artery disease on catheterization January 2000. Nuclear stress test was December 2007. Normal perfusion. Ejection fraction (EF) of 59%. 4. History of osteoporosis. 5. Hyperlipidemia. 6. Gastroesophageal reflux. 7. Hyperthyroidism status post subtotal thyroidectomy March 2001. 8. History of hypertensive heart disease. 9. Diastolic dysfunction. 10. Postoperative hypothyroidism, managed by Dr. Teresa Bernal. 11. Mild aortic regurgitation. 12. Mitral regurgitation. 13. She had iverticulitis.2010, 2011, 2012, 2013 with partial colectomy March 2014. 14. History of vitamin D deficiency. 15. Reactive depression. 16. 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 SURGICAL HISTORY: 1. Hysterectomy. 2. Bilateral salpingo-oophorectomy (BSO) with appendectomy. 3. Subtotal thyroidectomy. 4. Cataract extractions. 5. Right total hip May 2010. 6. Laparoscopic colectomy March 2014. FAMILY HISTORY: Father at 33 of an myocardial infarction ([place]). He had diabetes. Mother of old age at 92. A sister with breast cancer. SOCIAL HISTORY: Nonsmoker. No significant alcohol intake. Her , Mendoza, is attentive. ALLERGIES: To medications are numerous. DARVON caused nausea and vomiting. ALTACE caused cough. ZEBETA caused bradycardia. TALWIN caused a rash. PHENERGAN caused severe dystonia. MORPHINE caused nausea and vomiting. MACRODANTIN caused a rash. ERYTHROMYCIN caused a rash. DEMEROL caused nausea and vomiting. SULFA caused a rash. CIPRO caused nausea and vomiting. REVIEW OF SYSTEMS: She says she feels warm. She has a slight cough. She denies chest pain, shortness of breath, dysuria. PHYSICAL EXAMINATION: Maximal temperature 100, 115/57, pulse is 70, respirations 18. GENERAL APPEARANCE: She is lying in bed visiting with family members. She looks a little flushed. She is alert. Knows the month, year, her location, the president, and could tell me who was leading the [employer] tournament that she was watching on television at the time. HEENT: Unremarkable . LUNGS: Clear. HEART: Regular rate and rhythm. A 1/6 holosystolic murmur at the apex. ABDOMEN: Soft. Mildly distended, mildly tender. EXTREMITIES: No clubbing, cyanosis, or edema. NEUROLOGIC: She moves arms and legs equally. LABORATORY DATA: White count 12.4, hemoglobin 7.9, platelets 378. Sodium 142, potassium 3.7, BUN 8, creatinine 0.7. Medication list was reviewed. IMPRESSION: Postoperative delirium. Probably due to medication or postoperative state. She was quite oriented when I saw her, but per family she was seeing birds in the room earlier. Visual hallucinations would suggest drug side effect, most likely the ketorolac. I have ordered stat complete blood count (CBC), comprehensive metabolic panel (CMP), urinalysis, and a PA and lateral chest x-ray. Will followup on the results of these. [facility] will follow her postoperatively.
[2018-06-30] MEDS: IPRATROPIUM 0.5MG/ALBUTEROL 2.5MG INH SOL UD 3ML (DUONEB)(J7620) NEB SCH ×3 (01:56→14:00)
[2018-06-30 02:00] VITALS: BP 122/58
[2018-06-30 06:00] VITALS: BP 127/59
[2018-06-30] MEDS ORDERED: LEVOTHYROXINE 112MCG TABLET (0.112MG) PO SCH (06:00)
[2018-06-30 06:25] LABS: HEMATOCRIT 27.7 % (36.0-47.0); HEMOGLOBIN 7.7 g/dl (12.0-15.5); MEAN CORPUSCULAR HEMOGLOBIN 23.5 pg (27.0-33.0); MEAN CORPUSCULAR HGB CONC 27.8 g/dl (32.0-36.5); MEAN CORPUSCULAR VOLUME 84.5 fl (80.0-96.0); PLATELET COUNT, AUTOMATED 336 10^3/uL (150-450); RED BLOOD COUNT 3.28 10^6/uL (4.00-5.40); WHITE BLOOD COUNT 8.2 10^3/uL (4.0-10.0)
[2018-06-30 06:45] LABS: BLOOD UREA NITROGEN 8 MG/DL (7-18); CALCIUM LEVEL 8.3 MG/DL (8.8-10.2); CARBON DIOXIDE LEVEL 26 MEQ/L (21-32); CHLORIDE LEVEL 110 MEQ/L (98-107); CREATININE FOR GFR 0.69 MG/DL (0.55-1.30); GLOMERULAR FILTRATION RATE > 60.0 (>39); GLUCOSE, FASTING 108 MG/DL (70-100); POTASSIUM SERUM 3.6 MEQ/L (3.5-5.1); SODIUM LEVEL 143 MEQ/L (136-145)
[2018-06-30] MEDS: HumaLOG INSULIN (NovoLOG) PER UNIT SC SCH ×2 (07:30→12:00)
[2018-06-30] MEDS: ACETAMINOPHEN TAB 650MG DOSE (2X325MG) PO PRN (07:59)
[2018-06-30 08:00] VITALS: BP 127/59
[2018-06-30] MEDS: ATORVASTATIN 20 MG TAB PO SCH (08:00)
[2018-06-30] MEDS: LOSARTAN 25 MG TAB PO SCH (08:00)
[2018-06-30] MEDS: ALVIMOPAN 12 MG CAPSULE (ENTEREG) PO SCH (08:00)
[2018-06-30] MEDS: VENLAFAXINE **XR** 37.5 MG CAPSULE PO SCH (08:00)
[2018-06-30] MEDS: PANTOPRAZOLE 40MG INJ (PROTONIX) (C9113) IV SCH (08:01)
[2018-06-30 10:00] VITALS: BP 125/56
[2018-06-30 14:00] VITALS: BP 122/55
[2018-06-30 15:30] VITALS: BP 130/60
--- NOTE | 2018-06-30 15:57 | IPN ---
DATE: 06/30/2018 Jackeline was seen on [facility]. She actually was dressed to go home when I saw her. Her delirium has improved. This is basically the same thing that happened a few years ago when she had a diverticular stricture resected. She had a few days of some confusion that cleared when she went home. Her workup was unremarkable with negative urine culture and nothing was revealed on laboratories or x-ray. PHYSICAL EXAMINATION: She is alert, oriented, conversant. Mental status seems to be at baseline. Oriented times three. IMPRESSION: 1. Delirium, which she is probably related to her pain medications and postoperative state. I think she is safe to go home.
== END 2018-06-30 15:30 | disposition home or self-care (01) | DRG 330 ==
LOC: M OR 09:16 → M MS5PR 16:00
PROVIDERS: ADMIT Surgery; ATTEND Surgery
PROC: 0DNU4ZZ Release Omentum, Percutaneous Endoscopic Approach (ICD-10-PCS; 2018-06-27)
PROC: 0DBK4ZZ Excision of Ascending Colon, Percutaneous Endoscopic Approach (ICD-10-PCS; 2018-06-27)
PROC: 0DB84ZZ Excision of Small Intestine, Percutaneous Endoscopic Approach (ICD-10-PCS; 2018-06-27)
PROC: 0DBF4ZZ Excision of Right Large Intestine, Percutaneous Endoscopic Approach (ICD-10-PCS; principal; 2018-06-27 11:00)
DX: D12.0 Benign neoplasm of cecum (principal); J98.11 Atelectasis; F05 Delirium due to known physiological condition; I10 Essential (primary) hypertension; E78.00 Pure hypercholesterolemia, unspecified; E11.9 Type 2 diabetes mellitus without complications; K66.0 Peritoneal adhesions (postprocedural) (postinfection); I25.10 Atherosclerotic heart disease of native coronary artery without angina pectoris; K58.9 Irritable bowel syndrome, unspecified; M81.0 Age-related osteoporosis without current pathological fracture; E89.0 Postprocedural hypothyroidism; I08.0 Rheumatic disorders of both mitral and aortic valves; E55.9 Vitamin D deficiency, unspecified; K21.9 Gastro-esophageal reflux disease without esophagitis; E78.5 Hyperlipidemia, unspecified; Z85.828 Personal history of other malignant neoplasm of skin; Z90.710 Acquired absence of both cervix and uterus; Z96.641 Presence of right artificial hip joint; Z98.49 Cataract extraction status, unspecified eye; Z79.82 Long term (current) use of aspirin; Z79.899 Other long term (current) drug therapy; Z88.1 Allergy status to other antibiotic agents; Z88.2 Allergy status to sulfonamides; Z88.5 Allergy status to narcotic agent; Z88.8 Allergy status to other drugs, medicaments and biological substances

== ENCOUNTER → 2018-08-16 | Outpatient (REF) | payer MEDICARE, OTHER ==
[~2018-08-16] MED LIST changes: +CALC600T57 PO
== END ==
LOC: M SFHCPLAZ 15:31
PROVIDERS: ATTEND Nurse Practitioner Family
DX: N39.0 Urinary tract infection, site not specified (principal)
CPT/HCPCS: 81002; 87088; 87186; G0463

== ENCOUNTER → 2018-09-02 | Outpatient (CLI) | payer MEDICARE, OTHER ==
[2018-09-02 16:31] LABS: THYROID STIMULATING HORMONE 0.717 uIU/ML (0.358-3.740)
[2018-09-02 16:34] LABS: TOTAL 25(OH) VITAMIN D 27.5 NG/ML (30.0-100.0)
== END ==
LOC: M SMT 13:33
PROVIDERS: ATTEND Internal Medicine Endocrinology, Diabetes & Metabolism
DX: E89.0 Postprocedural hypothyroidism (principal); E55.9 Vitamin D deficiency, unspecified

== ENCOUNTER → 2018-09-03 | Outpatient (REF) | payer MEDICARE, OTHER | LOC: M SFHCPLAZ 17:28 | PROVIDERS: ATTEND Nurse Practitioner Family | DX: N39.0 Urinary tract infection, site not specified (principal) | CPT/HCPCS: 81002; 87088; 87186; G0463 ==

== ENCOUNTER → 2018-10-31 | Outpatient (REF) | payer MEDICARE, OTHER ==
[2018-10-31 17:59] LABS: BASO # 0.1 10^3/uL (0.0-0.2); BASO % 0.6 % (0.0-1.0); EOS # 0.1 10^3/uL (0.0-0.50); EOS % 1.3 % (0.0-3.0); HEMATOCRIT 42.6 % (36.0-47.0); LYMPH # 2.9 10^3/uL (1.5-4.5); LYMPH % 31.6 % (24.0-44.0); MEAN CORPUSCULAR HEMOGLOBIN 27.3 pg (27.0-33.0); MEAN CORPUSCULAR HGB CONC 30.5 g/dl (32.0-36.5); MEAN CORPUSCULAR VOLUME 89.5 fl (80.0-96.0); MONO % 11.1 % (0.0-5.0); NEUTROPHILS % 54.8 % (36.0-66.0); PLATELET COUNT, AUTOMATED 317 10^3/uL (150-450); RED BLOOD COUNT 4.76 10^6/uL (4.00-5.40); WHITE BLOOD COUNT 9.1 10^3/uL (4.0-10.0)
[2018-10-31 18:06] LABS: ALBUMIN 4.1 GM/DL (3.2-5.2); ALT/SGPT 28 U/L (12-78); BILIRUBIN,TOTAL 0.3 MG/DL (0.2-1.0); BLOOD UREA NITROGEN 15 MG/DL (7-18); CALCIUM LEVEL 9.6 MG/DL (8.8-10.2); CARBON DIOXIDE LEVEL 33 MEQ/L (21-32); CHLORIDE LEVEL 101 MEQ/L (98-107); CHOLESTEROL LEVEL 126 MG/DL (<200); CHOLESTEROL RISK RATIO 4.064 (<5); CREATININE FOR GFR 0.94 MG/DL (0.55-1.30); GLOMERULAR FILTRATION RATE > 60.0 (>39); GLUCOSE, FASTING 86 MG/DL (70-100); HDL CHOLESTEROL 31 MG/DL (>40); LDL CHOLESTEROL 58 MG/DL (<100); NON-HDL-C 95 MG/DL; POTASSIUM SERUM 4.3 MEQ/L (3.5-5.1); SODIUM LEVEL 139 MEQ/L (136-145); TOTAL PROTEIN 7.6 GM/DL (6.4-8.2); TRIGLYCERIDES LEVEL 183 MG/DL (<150)
[2018-10-31 18:34] LABS: CREATININE, URINE 73.9 MG/DL; MALB URINE SIEMENS 38.7 MG/L; MAU/CREAT RATIO 52.3 MCG/MG (0.0-30.0)
[2018-10-31 20:47] LABS: HEMOGLOBIN A1c 7.3 %
== END ==
LOC: M SFHCPLAZ 15:07
PROVIDERS: ATTEND Nurse Practitioner Family
DX: I10 Essential (primary) hypertension (principal); E11.9 Type 2 diabetes mellitus without complications; E78.2 Mixed hyperlipidemia; R19.7 Diarrhea, unspecified; N39.0 Urinary tract infection, site not specified
CPT/HCPCS: 36415; 80053; 80061; 81002; 82043; 83036; 85025; 87088; 87186; G0463

== ENCOUNTER → 2018-11-04 | Outpatient (REF) | payer MEDICARE, OTHER | LOC: M LAB REF 12:11 | PROVIDERS: ATTEND Nurse Practitioner Family | DX: R19.7 Diarrhea, unspecified (principal) ==

== ENCOUNTER → 2018-12-20 | Outpatient (REF) | payer MEDICARE, OTHER ==
[2018-12-20 19:20] LABS: APPEARANCE, URINE CLOUDY (CLEAR); BACTERIA, URINE AUTO 2+ (NEGATIVE); BILIRUBIN, URINE AUTO NEGATIVE (NEGATIVE); BLOOD, URINE BLOOD NEGATIVE (NEGATIVE); COLOR, URINE YELLOW (YELLOW); GLUCOSE, URINE (UA) AUTO NEGATIVE (NEGATIVE); KETONE, URINE AUTO NEGATIVE (NEGATIVE); LEUKOCYTE ESTERASE, URINE AUTO 3+ (NEGATIVE); MUCUS, URINE SMALL (NEGATIVE); NITRITE, URINE AUTO POSITIVE (NEGATIVE); PROTEIN, URINE AUTO NEGATIVE (NEGATIVE); RBC, URINE AUTO 2 /HPF (0-3); SPECIFIC GRAVITY URINE AUTO 1.016 (1.002-1.035); SQUAMOUS EPITHELIAL CELL UR AU 2 /HPF (0-6); UROBILINOGEN, URINE AUTO 0.2 mg/dL (0.0-2.0); WBC, URINE AUTO TNTC /HPF (0-3)
== END ==
LOC: M SMT 16:42
PROVIDERS: ATTEND Nurse Practitioner Family
DX: N39.0 Urinary tract infection, site not specified (principal)
CPT/HCPCS: 81001; 87088; 87186; G0463

== ENCOUNTER → 2018-12-30 | Outpatient (CLI) | payer MEDICARE, BC, OTHER ==
--- NOTE | 2018-12-30 13:34 | REP ---
Limited pelvic bladder sonography: History: Frequent urinary tract infections. Findings: The bladder larson are smooth. Emptying ureteral jets are confirmed bilaterally on color Doppler interrogation of the bladder lumen. Pre void bladder volume is calculated at 101 mL. The patient did not feel the urge to void. No postvoid imaging. Impression: No abnormality noted. Electronically Signed by Aman Mims MD 12/30/2018 01:57 P
--- NOTE | 2018-12-30 13:36 | REP ---
URINARY TRACT SONOGRAPHY: HISTORY: Frequent UTIs. Question renal anomaly. FINDINGS: Multiple cysts are noted incidentally in the liver, measuring up to 2.0 cm in diameter. Renal cortical echogenicity pattern is normal and contours are smooth on both sides. No hydronephrosis is seen on either side. Right renal dimensions are 11.4 x 4.4 x 4.3 cm. Left kidney measures 11.6 x 3.8 x 4.5 cm. There are two cysts in the periphery of the left kidney measuring 0.6 and 0.7 cm in greatest diameter. IMPRESSION: No hydronephrosis seen. Two small cysts left kidney. Incidental note is made of several hepatic cysts. Electronically Signed by Aman Mims MD 12/30/2018 01:57 P
== END ==
LOC: M RAD 11:55
PROVIDERS: ATTEND Nurse Practitioner Family
DX: N39.0 Urinary tract infection, site not specified (principal)

== ENCOUNTER → 2019-01-06 | Outpatient (REF) | payer MEDICARE, OTHER ==
[2019-01-06 14:20] LABS: APPEARANCE, URINE CLEAR (CLEAR); BACTERIA, URINE AUTO NEGATIVE (NEGATIVE); BILIRUBIN, URINE AUTO NEGATIVE (NEGATIVE); BLOOD, URINE BLOOD NEGATIVE (NEGATIVE); CALCIUM OXALATE CRYSTALS SMALL; COLOR, URINE YELLOW (YELLOW); GLUCOSE, URINE (UA) AUTO NEGATIVE (NEGATIVE); KETONE, URINE AUTO NEGATIVE (NEGATIVE); LEUKOCYTE ESTERASE, URINE AUTO 1+ (NEGATIVE); NITRITE, URINE AUTO NEGATIVE (NEGATIVE); PROTEIN, URINE AUTO NEGATIVE (NEGATIVE); RBC, URINE AUTO 1 /HPF (0-3); SPECIFIC GRAVITY URINE AUTO 1.013 (1.002-1.035); SQUAMOUS EPITHELIAL CELL UR AU 1 /HPF (0-6); UROBILINOGEN, URINE AUTO 0.2 mg/dL (0.0-2.0); WBC, URINE AUTO 21 /HPF (0-3)
== END ==
LOC: M SMT 13:20
PROVIDERS: ATTEND Nurse Practitioner Family
DX: N39.0 Urinary tract infection, site not specified (principal)

== ENCOUNTER → 2019-02-24 | Outpatient (CLI) | payer MEDICARE, OTHER ==
[2019-02-24 14:46] LABS: THYROID STIMULATING HORMONE 0.383 uIU/ML (0.358-3.740); TOTAL 25(OH) VITAMIN D 60.8 NG/ML (30.0-100.0)
== END ==
LOC: M PLALAB 11:53
PROVIDERS: ATTEND Internal Medicine Endocrinology, Diabetes & Metabolism
DX: E55.9 Vitamin D deficiency, unspecified (principal); E07.9 Disorder of thyroid, unspecified

== ENCOUNTER → 2019-04-23 | Outpatient (REF) | payer MEDICARE, OTHER ==
[2019-04-23 17:33] LABS: APPEARANCE, URINE CLOUDY (CLEAR); BACTERIA, URINE AUTO 1+ (NEGATIVE); BILIRUBIN, URINE AUTO NEGATIVE (NEGATIVE); BLOOD, URINE BLOOD NEGATIVE (NEGATIVE); CALCIUM OXALATE CRYSTALS MODERATE; COLOR, URINE AMBER (YELLOW); GLUCOSE, URINE (UA) AUTO 2+ mg/dL (NEGATIVE); KETONE, URINE AUTO NEGATIVE (NEGATIVE); LEUKOCYTE ESTERASE, URINE AUTO 3+ (NEGATIVE); MUCUS, URINE SMALL (NEGATIVE); NITRITE, URINE AUTO POSITIVE (NEGATIVE); PROTEIN, URINE AUTO NEGATIVE (NEGATIVE); RBC, URINE AUTO 3 /HPF (0-3); SPECIFIC GRAVITY URINE AUTO 1.017 (1.002-1.035); SQUAMOUS EPITHELIAL CELL UR AU 0 /HPF (0-6); TRANSITIONAL EPITHELIAL AUTO <1 /HPF; WBC, URINE AUTO TNTC /HPF (0-3)
== END ==
LOC: M SMT 16:39
PROVIDERS: ATTEND Nurse Practitioner Family
DX: N39.0 Urinary tract infection, site not specified (principal)
CPT/HCPCS: 81001; 87088; 87186; G0463

== ENCOUNTER → 2019-08-14 | Outpatient (REF) | payer MEDICARE, BC, OTHER ==
[~2019-08-14] MED LIST changes: +FAMO1TAB11 PO; +NITR0.4S14 SL; +NORC1TAB7 PO; +ONDA4TAB6 PO
[2019-08-14 20:02] LABS: BASO # 0.1 10^3/uL (0.0-0.2); BASO % 0.6 % (0.0-1.0); EOS # 0.3 10^3/uL (0.0-0.5); HEMATOCRIT 40.7 % (36.0-47.0); HEMOGLOBIN 12.3 g/dl (12.0-15.5); LYMPH # 2.7 10^3/uL (1.5-5.0); LYMPH % 32.2 % (24.0-44.0); MEAN CORPUSCULAR HEMOGLOBIN 28.4 pg (27.0-33.0); MEAN CORPUSCULAR HGB CONC 30.2 g/dl (32.0-36.5); MONO # 0.9 10^3/uL (0.0-0.8); MONO % 11.1 % (0.0-5.0); NEUTROPHILS # 4.4 10^3/uL (1.5-8.5); NEUTROPHILS % 52.6 % (36.0-66.0); PLATELET COUNT, AUTOMATED 304 10^3/uL (150-450); RED BLOOD COUNT 4.33 10^6/uL (4.00-5.40); WHITE BLOOD COUNT 8.3 10^3/uL (4.0-10.0)
[2019-08-14 20:10] LABS: ALBUMIN 3.8 GM/DL (3.2-5.2); ALT/SGPT 56 U/L (12-78); BILIRUBIN,TOTAL 0.5 MG/DL (0.2-1.0); BLOOD UREA NITROGEN 14 MG/DL (7-18); CALCIUM LEVEL 9.4 MG/DL (8.8-10.2); CARBON DIOXIDE LEVEL 31 MEQ/L (21-32); CHLORIDE LEVEL 106 MEQ/L (98-107); CHOLESTEROL LEVEL 180 MG/DL (<200); CREATININE FOR GFR 0.86 MG/DL (0.55-1.30); FERRITIN 40 NG/ML (8-252); FREE T4 1.36 NG/DL (0.76-1.46); GLOMERULAR FILTRATION RATE > 60.0 (>32); GLUCOSE, FASTING 109 MG/DL (70-100); HDL CHOLESTEROL 25 MG/DL (>40); IRON (FE) 82 UG/DL (50-170); LDL CHOLESTEROL 105 MG/DL (<100); NON-HDL-C 155 MG/DL; PERCENT SATURATION 22.3 % (13.2-45.0); POTASSIUM SERUM 4.7 MEQ/L (3.5-5.1); SODIUM LEVEL 143 MEQ/L (136-145); TOTAL IRON BINDING CAPACITY 368 UG/DL (250-450); TOTAL PROTEIN 6.8 GM/DL (6.4-8.2); TRIGLYCERIDES LEVEL 251 MG/DL (<150)
== END ==
LOC: M SFHCADAM 15:44
PROVIDERS: ATTEND Family Medicine
DX: D50.9 Iron deficiency anemia, unspecified (principal); D72.829 Elevated white blood cell count, unspecified; E78.2 Mixed hyperlipidemia; E03.9 Hypothyroidism, unspecified; E13.9 Other specified diabetes mellitus without complications
CPT/HCPCS: 80053; 80061; 82728; 83036; 83550; 84439; 84443; 85025; 85046; G0463

== ENCOUNTER → 2019-09-10 | Outpatient (CLI) | payer MEDICARE, OTHER ==
[2019-09-10 17:13] LABS: THYROID STIMULATING HORMONE 0.481 uIU/ML (0.358-3.740); TOTAL 25(OH) VITAMIN D 52.2 NG/ML (30.0-100.0)
== END ==
LOC: M WUC 15:18
PROVIDERS: ATTEND Internal Medicine Endocrinology, Diabetes & Metabolism
DX: E89.0 Postprocedural hypothyroidism (principal); Z79.899 Other long term (current) drug therapy

== ENCOUNTER → 2019-09-16 | Outpatient (REF) | payer MEDICARE, OTHER ==
[~2019-09-16] MED LIST changes: -FAMO1TAB11 PO; -NITR0.4S14 SL; -NORC1TAB7 PO; -ONDA4TAB6 PO
== END ==
LOC: M LAB REF 17:04
PROVIDERS: ATTEND Physician Assistant
DX: L82.0 Inflamed seborrheic keratosis (principal)
CPT/HCPCS: 11102; 88305; G0463

== ENCOUNTER 2019-11-29 19:36 | Emergency (ER) | payer MEDICARE, BC, OTHER ==
[~2019-11-29] VITALS: Ht 149.9 cm; Wt 64.1 kg
[2019-11-29] MEDS ORDERED: NITR0.4S14 SL (20:03)
[2019-11-29] MEDS ORDERED: FAMO1TAB11 PO (20:03)
[2019-11-29] MEDS ORDERED: HYDROMORPHONE HCL 0.5 MG/ 0.5 ML SYRINGE (J1170 PER 1) IV ONE (20:15)
[2019-11-29] MEDS ORDERED: ONDANSETRON 4MG/2ML VIAL IV ONE (20:15)
--- NOTE | 2019-11-29 21:36 | REPVR ---
PROCEDURE INFORMATION: Exam: XR Left Humerus Exam date and time: 11/29/2019 9:02 PM Age: 79 years old Clinical indication: Other: Fall; Additional info: Fall, pain TECHNIQUE: Imaging protocol: XR Left humerus Views: 2 or more views. COMPARISON: No relevant prior studies available. FINDINGS: Bones/joints: Moderately angulated spiral fracture of the proximal humeral metaphysis with mild displacement. Soft tissues: Slight distortion around the site of fracture. IMPRESSION: Moderately angulated spiral fracture of the proximal humeral metaphysis with mild displacement. Electronically signed by: Linus Zapata On 11/29/2019 21:36:13 PM
[2019-11-29] MEDS ORDERED: ONDA4TAB6 PO (22:12)
[2019-11-29] MEDS ORDERED: NORC1TAB7 PO (22:12)
[2019-11-29] MEDS ORDERED: NORCO, ANEXSIA 5/325MG TABLET (HYDROcodone/ACETAMINOPHEN) PO ONE (22:15)
[2019-11-29] MEDS ORDERED: NORCO 5/325MG TABLET (BULK FOR ED) PO ONE (22:15)
[2019-11-29] MEDS ORDERED: ONDANSETRON 4 MG ORAL DISINTEGRATING TAB As Ordered ONE (22:28)
[2019-11-29] MEDS ORDERED: ONDANSETRON 4 MG ORAL DISINTEGRATING TAB PO ONE (22:30)
[2019-11-29 22:36] VITALS: BP 128/53
--- NOTE | 2019-12-18 07:08 | REP ---
LEFT SHOULDER SERIES: CLINICAL: Trauma. TECHNIQUE: Internal rotation, external rotation and Y-view of the left shoulder. FINDINGS: There is an angulated oblique fracture through the proximal humeral metadiaphysis with overlying soft tissue swelling. Underlying age related osteopenia and degenerative change is noted. IMPRESSION: Angulated oblique fracture through the proximal humeral metadiaphysis. MTDD
--- NOTE | 2019-12-18 07:09 | REP ---
CHEST X-RAY: CLINICAL: Left shoulder fracture. FINDINGS: Mediastinum and cardiac silhouette are normal. Lung chester demonstrate chronic interstitial changes. No acute consolidation, effusion or pneumothorax. The visualized skeletal structures demonstrate age related osteopenia and degenerative changes. IMPRESSION: Chronic changes. No acute cardiopulmonary process. MTDD
== END 2019-11-29 22:20 | disposition home or self-care (01) ==
LOC: M ED 19:36
DX: S49.092A Other physeal fracture of upper end of humerus, left arm, initial encounter for closed fracture (principal); W10.8XXA Fall (on) (from) other stairs and steps, initial encounter; Y92.098 Other place in other non-institutional residence as the place of occurrence of the external cause; M85.812 Other specified disorders of bone density and structure, left shoulder; M19.012 Primary osteoarthritis, left shoulder; I11.0 Hypertensive heart disease with heart failure; I50.9 Heart failure, unspecified; E78.00 Pure hypercholesterolemia, unspecified; E11.9 Type 2 diabetes mellitus without complications; K21.9 Gastro-esophageal reflux disease without esophagitis; E03.9 Hypothyroidism, unspecified; Z88.5 Allergy status to narcotic agent; Z88.8 Allergy status to other drugs, medicaments and biological substances; Z88.1 Allergy status to other antibiotic agents; Z79.899 Other long term (current) drug therapy; Z79.82 Long term (current) use of aspirin; Z79.84 Long term (current) use of oral hypoglycemic drugs; Z96.641 Presence of right artificial hip joint
CPT/HCPCS: 71045; 73030; 73060; 96374; 96375; 99284; J1170; J2405; Q0162

== ENCOUNTER → 2020-09-30 | Outpatient (REF) | payer MEDICARE, BC, OTHER ==
[~2020-09-30] MED LIST changes: +FAMO1TAB11 PO; +FURO40TA2 PO; +MINO50CA3 PO; +NITR0.4S14 SL; +NORC1TAB7 PO; +OMEP-221 PO; +ONDA4TAB6 PO; +VENL75CA47 PO
== END ==
LOC: M LAB REF 19:08
PROVIDERS: ATTEND Physician Assistant
DX: C44.321 Squamous cell carcinoma of skin of nose (principal); L82.1 Other seborrheic keratosis; D18.01 Hemangioma of skin and subcutaneous tissue; L82.0 Inflamed seborrheic keratosis; Z86.018 Personal history of other benign neoplasm; Z85.828 Personal history of other malignant neoplasm of skin; Z12.83 Encounter for screening for malignant neoplasm of skin
CPT/HCPCS: 11102; 17110; 88305; G0463

== ENCOUNTER → 2020-10-25 | Outpatient (CLI) | payer MEDICARE, BC, OTHER ==
[~2020-10-25] MED LIST changes: +DIPH2.5T14; -FLUC150T PO; +FLUC150T9 PO; +LOSA25TA13 PO; -LOSA25TA14 PO; -OMEP-221 PO; +OMEP40CA5 PO; +SPIR100T3 PO
[2020-10-25 15:08] LABS: THYROID STIMULATING HORMONE 3.17 uIU/ML (0.358-3.740); TOTAL 25(OH) VITAMIN D 45.7 NG/ML (30.0-100.0)
== END ==
LOC: M PLALAB 10:24
PROVIDERS: ATTEND Internal Medicine Endocrinology, Diabetes & Metabolism
DX: E55.9 Vitamin D deficiency, unspecified (principal); E89.0 Postprocedural hypothyroidism; Z79.899 Other long term (current) drug therapy

== ENCOUNTER → 2020-10-30 | Outpatient (CLI) | payer MEDICARE, BC, OTHER ==
[~2020-10-30] MED LIST changes: +FLUC150T PO; -FLUC150T9 PO; -LOSA25TA13 PO; +LOSA25TA14 PO; +OMEP-221 PO; -OMEP40CA5 PO
== END ==
LOC: M LABSMTC 09:39
PROVIDERS: ATTEND Anesthesiology
DX: Z01.818 Encounter for other preprocedural examination (principal); Z11.52 Encounter for screening for COVID-19

== ENCOUNTER 2020-11-04 11:20 | Day surgery (SDC) | payer MEDICARE, BC, OTHER ==
[~2020-11-04] VITALS: Ht 149.9 cm; Wt 66.4 kg
[2020-11-04] MEDS ORDERED: propofoL 200 MG/20 ML VIAL As Ordered ONE ×2 (12:41→12:42)
[2020-11-04] MEDS ORDERED: LIDOCAINE 2% 100MG/5ML SDV (FOR ANES.) As Ordered ONE (12:42)
--- NOTE | 2020-11-04 13:03 | ROOR ---
Patient Name: Jackeline Ramos Procedure Date: 11/04/2020 12:52 PM Date of : 1940 Age: 80 Room: [facility] Gender: Female Note Status: Finalized Procedure: Upper GI endoscopy Indications: Suspected esophageal reflux Providers: James Gomez Jr, MD Referring MD: Merlin Tobin MD Requesting Provider: Medicines: Propofol per Anesthesia Complications: No immediate complications. Procedure: Pre-Anesthesia Assessment: - Prior to the procedure, a History and Physical was performed, and patient medications and allergies were reviewed. The patient is competent. The risks and benefits of the procedure and the sedation options and risks were discussed with the patient. All questions were answered and informed consent was obtained. Patient identification and proposed procedure were verified by the physician and the nurse in the pre-procedure area and in the procedure room. Mental Status Examination: alert and oriented. Airway Examination: normal oropharyngeal airway and neck mobility. Respiratory Examination: clear to auscultation. CV Examination: normal. ASA Grade Assessment: II - A patient with mild systemic disease. After reviewing the risks and benefits, the patient was deemed in satisfactory condition to undergo the procedure. The anesthesia plan was to use moderate sedation / analgesia (conscious sedation). Immediately prior to administration of medications, the patient was re-assessed for adequacy to receive sedatives. The heart rate, respiratory rate, oxygen saturations, blood pressure, adequacy of pulmonary ventilation, and response to care were monitored throughout the procedure. The physical status of the patient was re-assessed after the procedure. The Endoscope was introduced through the mouth, and advanced to the second part of duodenum. The upper GI endoscopy was accomplished without difficulty. The patient tolerated the procedure well. Findings: The upper third of the esophagus, middle third of the esophagus and lower third of the esophagus were normal. A small hiatal hernia was present. The cardia, gastric fundus, gastric body, gastric antrum, prepyloric region of the stomach and pylorus were normal. The duodenal bulb, first portion of the duodenum and second portion of the duodenum were normal. Impression: - Normal upper third of esophagus, middle third of esophagus and lower third of esophagus. - Small hiatal hernia. - Normal cardia, gastric fundus, gastric body, antrum, prepyloric region of the stomach and pylorus. - Normal duodenal bulb, first portion of the duodenum and second portion of the duodenum. - No specimens collected. Recommendation: - Discharge patient to home (ambulatory). - Return to my office as previously scheduled. Procedure Code(s): --- Professional --- 88630, Esophagogastroduodenoscopy, flexible, transoral; diagnostic, including collection of specimen(s) by brushing or washing, when performed (separate procedure) Diagnosis Code(s): --- Professional --- K44.9, Diaphragmatic hernia without obstruction or gangrene CPT copyright 2019 [employer]. All rights reserved. The codes documented in this report are preliminary and upon control chemist review may be revised to meet current compliance requirements. James Gomez MD James Gomez Jr, MD 11/04/2020 1:02:54 PM Electronically signed by James Gomez Jr, MD Number of Addenda: 0 Note Initiated On: 11/04/2020 12:52 PM Estimated Blood Loss: Estimated blood loss: none.
--- NOTE | 2020-11-04 13:09 | ROOR ---
Patient Name: Jackeline Ramos Procedure Date: 11/04/2020 12:53 PM Date of : 1940 Age: 80 Room: [facility] Gender: Female Note Status: Finalized Procedure: Colonoscopy Indications: High risk colon cancer surveillance: Personal history of colon cancer Providers: James Gomez Jr, MD Referring MD: Merlin Tobin MD Requesting Provider: Medicines: Propofol per Anesthesia Complications: No immediate complications. Procedure: Pre-Anesthesia Assessment: - Prior to the procedure, a History and Physical was performed, and patient medications and allergies were reviewed. The patient is competent. The risks and benefits of the procedure and the sedation options and risks were discussed with the patient. All questions were answered and informed consent was obtained. Patient identification and proposed procedure were verified by the physician and the nurse in the pre-procedure area and in the procedure room. Mental Status Examination: alert and oriented. Airway Examination: normal oropharyngeal airway and neck mobility. Respiratory Examination: clear to auscultation. CV Examination: normal. ASA Grade Assessment: II - A patient with mild systemic disease. After reviewing the risks and benefits, the patient was deemed in satisfactory condition to undergo the procedure. The anesthesia plan was to use moderate sedation / analgesia (conscious sedation). Immediately prior to administration of medications, the patient was re-assessed for adequacy to receive sedatives. The heart rate, respiratory rate, oxygen saturations, blood pressure, adequacy of pulmonary ventilation, and response to care were monitored throughout the procedure. The physical status of the patient was re-assessed after the procedure. The Colonoscope was introduced through the anus and advanced to the ileocolonic anastomosis. The colonoscopy was performed without difficulty. The patient tolerated the procedure well. The quality of the bowel preparation was adequate. Findings: The rectum, descending colon, transverse colon, ascending colon and anastomosis appeared normal. A few small and large-mouthed diverticula were found in the descending colon and ascending colon. Impression: - The rectum, descending colon, transverse colon, ascending colon and colonic anastomosis are normal. - Diverticulosis in the descending colon and in the ascending colon. - No specimens collected. Recommendation: - Discharge patient to home (ambulatory). - Repeat colonoscopy in 5 years for surveillance. Procedure Code(s): --- Professional --- 41155, Colonoscopy, flexible; diagnostic, including collection of specimen(s) by brushing or washing, when performed (separate procedure) Diagnosis Code(s): --- Professional --- Z85.038, Personal history of other malignant neoplasm of large intestine K57.30, Diverticulosis of large intestine without perforation or abscess without bleeding CPT copyright 2019 [employer]. All rights reserved. The codes documented in this report are preliminary and upon perfumer review may be revised to meet current compliance requirements. James Gomez MD James Gomez Jr, MD 11/04/2020 1:09:29 PM Electronically signed by James Gomez Jr, MD Number of Addenda: 0 Note Initiated On: 11/04/2020 12:53 PM Estimated Blood Loss: Estimated blood loss: none.
[2020-11-04 13:32] VITALS: BP 121/60
== END 2020-11-04 13:41 | disposition home or self-care (01) ==
LOC: M OPP 11:20
PROVIDERS: ATTEND Surgery
DX: Z12.11 Encounter for screening for malignant neoplasm of colon (principal); Z85.038 Personal history of other malignant neoplasm of large intestine; K57.30 Diverticulosis of large intestine without perforation or abscess without bleeding; K44.9 Diaphragmatic hernia without obstruction or gangrene; Z79.82 Long term (current) use of aspirin; Z79.899 Other long term (current) drug therapy; Z88.1 Allergy status to other antibiotic agents; Z88.2 Allergy status to sulfonamides; Z88.5 Allergy status to narcotic agent; Z88.8 Allergy status to other drugs, medicaments and biological substances
CPT/HCPCS: 43235; G0105

== ENCOUNTER → 2020-12-21 | Outpatient (CLI) | payer MEDICARE, BC, OTHER ==
--- NOTE | 2020-12-21 14:08 | REP ---
INDICATION: SHORTNESS OF BREATH. COMPARISON: November 29, 2019. TECHNIQUE: PA and lateral views.. FINDINGS: The lungs are slightly hyperinflated. No focal infiltrate is appreciated. Pleural angles are sharp. There is mild linear fibrosis in the lung bases bilaterally. The heart is moderately enlarged unchanged. The thoracic aorta is tortuous. There are degenerative changes in the thoracic spine. There is an old healed proximal humeral fracture on the left. No acute bony abnormality. IMPRESSION: Hyperinflation and moderate cardiomegaly. Mild bibasilar fibrosis. <Electronically signed by Miguel A Mims > 12/21/20 [id number]
[2020-12-21 18:11] LABS: HEMATOCRIT 34.5 % (36.0-47.0); HEMOGLOBIN 9.7 g/dl (12.0-15.5); MEAN CORPUSCULAR HEMOGLOBIN 23.8 pg (27.0-33.0); MEAN CORPUSCULAR HGB CONC 28.1 g/dl (32.0-36.5); MEAN CORPUSCULAR VOLUME 84.6 fl (80.0-96.0); PLATELET COUNT, AUTOMATED 493 10^3/uL (150-450); RED BLOOD COUNT 4.08 10^6/uL (4.00-5.40); WHITE BLOOD COUNT 9.6 10^3/uL (4.0-10.0)
[2020-12-21 19:31] LABS: ALBUMIN 3.6 GM/DL (3.2-5.2); ALT/SGPT 27 U/L (12-78); BILIRUBIN,TOTAL 0.5 MG/DL (0.2-1.0); BLOOD UREA NITROGEN 12 MG/DL (7-18); CALCIUM LEVEL 9.7 MG/DL (8.8-10.2); CARBON DIOXIDE LEVEL 29 MEQ/L (21-32); CHLORIDE LEVEL 104 MEQ/L (98-107); GLOMERULAR FILTRATION RATE > 60.0 (>32); GLUCOSE, FASTING 242 MG/DL (70-100); NT-PRO BNP 76 PG/ML (<450); SODIUM LEVEL 137 MEQ/L (136-145)
== END ==
LOC: M PLAIMG 13:38
PROVIDERS: ATTEND Physician Assistant
DX: I51.7 Cardiomegaly (principal); R06.02 Shortness of breath
CPT/HCPCS: 36415; 71046; 80053; 83880; 85027; G0463

== ENCOUNTER → 2020-12-22 | Outpatient (REF) | payer MEDICARE, OTHER ==
[2020-12-22 17:06] LABS: ALBUMIN 3.6 GM/DL (3.2-5.2); ALT/SGPT 29 U/L (12-78); BILIRUBIN,TOTAL 0.3 MG/DL (0.2-1.0); BLOOD UREA NITROGEN 9 MG/DL (7-18); CALCIUM LEVEL 9.3 MG/DL (8.8-10.2); CARBON DIOXIDE LEVEL 25 MEQ/L (21-32); CHLORIDE LEVEL 105 MEQ/L (98-107); CHOLESTEROL LEVEL 173 MG/DL (<200); CHOLESTEROL RISK RATIO 4.675 (<5); CREATININE FOR GFR 0.88 MG/DL (0.55-1.30); FERRITIN 13 NG/ML (8-252); FOLATE 12.8 NG/ML (>5.4); FREE T4 1.31 NG/DL (0.76-1.46); GLOMERULAR FILTRATION RATE > 60.0 (>32); GLUCOSE, FASTING 304 MG/DL (70-100); HDL CHOLESTEROL 37 MG/DL (>40); IRON (FE) 26 UG/DL (50-170); LDL CHOLESTEROL 108 MG/DL (<100); NON-HDL-C 136 MG/DL; PERCENT SATURATION 6.3 % (13.2-45.0); SODIUM LEVEL 136 MEQ/L (136-145); TOTAL IRON BINDING CAPACITY 415 UG/DL (250-450); TRIGLYCERIDES LEVEL 138 MG/DL (<150); VITAMIN B12 LEVEL 551 PG/ML (247-911)
[2020-12-22 19:44] LABS: HEMOGLOBIN A1c 9.6 %
== END ==
LOC: M SFHCADAM 11:44
PROVIDERS: ATTEND Family Medicine
DX: D50.9 Iron deficiency anemia, unspecified (principal); E78.2 Mixed hyperlipidemia; I11.9 Hypertensive heart disease without heart failure; E13.9 Other specified diabetes mellitus without complications; E03.9 Hypothyroidism, unspecified
CPT/HCPCS: 80053; 80061; 82607; 82728; 82746; 83036; 83550; 84439; 84443; 85046; G0463

== ENCOUNTER → 2021-02-17 | Outpatient (REF) | payer MEDICARE, BC, OTHER ==
[~2021-02-17] MED LIST changes: -FLUC150T PO; +FLUC150T9 PO; +LOSA25TA13 PO; -LOSA25TA14 PO; -OMEP-221 PO; +OMEP40CA5 PO
[2021-02-17 16:21] LABS: HEMATOCRIT 37.4 % (36.0-47.0); HEMOGLOBIN 10.7 g/dl (12.0-15.5); MEAN CORPUSCULAR HEMOGLOBIN 25.4 pg (27.0-33.0); MEAN CORPUSCULAR HGB CONC 28.6 g/dl (32.0-36.5); MEAN CORPUSCULAR VOLUME 88.8 fl (80.0-96.0); PLATELET COUNT, AUTOMATED 400 10^3/uL (150-450); RED BLOOD COUNT 4.21 10^6/uL (4.00-5.40); WHITE BLOOD COUNT 10.8 10^3/uL (4.0-10.0)
[2021-02-17 16:57] LABS: BLOOD UREA NITROGEN 15 MG/DL (7-18); CALCIUM LEVEL 9.3 MG/DL (8.8-10.2); CARBON DIOXIDE LEVEL 30 MEQ/L (21-32); CHLORIDE LEVEL 105 MEQ/L (98-107); CREATININE FOR GFR 0.86 MG/DL (0.55-1.30); FERRITIN 19 NG/ML (8-252); GLOMERULAR FILTRATION RATE > 60.0 (>32); GLUCOSE, FASTING 163 MG/DL (70-100); IRON (FE) 37 UG/DL (50-170); PERCENT SATURATION 9.2 % (13.2-45.0); POTASSIUM SERUM 4.3 MEQ/L (3.5-5.1); SODIUM LEVEL 141 MEQ/L (136-145); TOTAL IRON BINDING CAPACITY 401 UG/DL (250-450)
[2021-02-17 20:24] LABS: HEMOGLOBIN A1c 7.5 %
== END ==
LOC: M SFHCADAM 15:24
PROVIDERS: ATTEND Family Medicine
DX: E11.65 Type 2 diabetes mellitus with hyperglycemia (principal); D50.9 Iron deficiency anemia, unspecified
CPT/HCPCS: 80048; 82728; 83036; 83550; 85027; 85046; G0463

== ENCOUNTER → 2021-03-30 | Outpatient (REF) | payer MEDICARE, OTHER ==
[2021-03-30 13:47] LABS: APPEARANCE, URINE CLEAR (CLEAR); BACTERIA, URINE AUTO NEGATIVE (NEGATIVE); BILIRUBIN, URINE AUTO NEGATIVE (NEGATIVE); BLOOD, URINE BLOOD NEGATIVE (NEGATIVE); COLOR, URINE YELLOW (YELLOW); GLUCOSE, URINE (UA) AUTO NEGATIVE (NEGATIVE); KETONE, URINE AUTO NEGATIVE (NEGATIVE); LEUKOCYTE ESTERASE, URINE AUTO 1+ (NEGATIVE); MUCUS, URINE SMALL (NEGATIVE); NITRITE, URINE AUTO NEGATIVE (NEGATIVE); PROTEIN, URINE AUTO NEGATIVE (NEGATIVE); RBC, URINE AUTO 0 /HPF (0-3); SPECIFIC GRAVITY URINE AUTO 1.016 (1.002-1.035); SQUAMOUS EPITHELIAL CELL UR AU 1 /HPF (0-6); UROBILINOGEN, URINE AUTO 0.2 mg/dL (0.0-2.0); WBC, URINE AUTO 4 /HPF (0-3)
== END ==
LOC: M SMT 12:46
PROVIDERS: ATTEND Physician Assistant
DX: N39.0 Urinary tract infection, site not specified (principal)

== ENCOUNTER → 2021-04-18 | Outpatient (CLI) | payer MEDICARE, BC, OTHER ==
[2021-04-18 18:45] LABS: THYROID STIMULATING HORMONE 2.22 uIU/ML (0.358-3.740)
[2021-04-18 18:47] LABS: TOTAL 25(OH) VITAMIN D 36.9 NG/ML (30.0-100.0)
== END ==
LOC: M PLALAB 15:26
PROVIDERS: ATTEND Internal Medicine Endocrinology, Diabetes & Metabolism
DX: E89.0 Postprocedural hypothyroidism (principal)

== ENCOUNTER → 2021-06-13 | Outpatient (CLI) | payer MEDICARE, BC, OTHER | LOC: M PLALAB 10:18 | PROVIDERS: ATTEND Physician Assistant | DX: R06.02 Shortness of breath (principal) ==

== ENCOUNTER → 2021-09-27 | Outpatient (CLI) | payer MEDICARE, BC, OTHER ==
[2021-09-27 15:46] LABS: CREATININE FOR GFR 1.06 MG/DL (0.55-1.30); GLOMERULAR FILTRATION RATE 52.8 (>32); POTASSIUM SERUM 4.4 MEQ/L (3.5-5.1); THYROID STIMULATING HORMONE 1.62 uIU/ML (0.358-3.740)
== END ==
LOC: M PLALAB 11:39
PROVIDERS: ATTEND Internal Medicine Endocrinology, Diabetes & Metabolism
DX: E11.9 Type 2 diabetes mellitus without complications (principal); E89.0 Postprocedural hypothyroidism

== ENCOUNTER → 2021-10-11 | Outpatient (REF) | payer MEDICARE, BC ==
[2021-10-11 19:03] LABS: BLOOD UREA NITROGEN 9 MG/DL (7-18); CREATININE FOR GFR 0.77 MG/DL (0.55-1.30); GLOMERULAR FILTRATION RATE > 60.0 (>32)
== END ==
LOC: M LAB REF 17:09
PROVIDERS: ATTEND Internal Medicine Pulmonary Disease
DX: R06.00 Dyspnea, unspecified (principal)